=== PATIENT | male | born 1985 | race Caucasian/White ===

== ENCOUNTER → 2016-09-14 | Outpatient (CLI) | payer BC ==
[~2016-09-14] MED LIST: HYDR-3816 PO; SULF-222 PO
--- NOTE | 2016-09-14 15:23 | Diagnostic Imaging Report ---
PROCEDURE: MRI right joint upper extremity without contrast. TECHNIQUE: Multiplanar, multisequence non contrast-enhanced MRI of the right elbow was accomplished. INDICATION: Right elbow pain. History of right elbow surgery approximately 25 years ago. COMPARISONS: None available. FINDINGS: Evaluation of the medial and lateral collateral ligaments of the elbow is limited without intra-articular contrast. Allowing for this, the visualized portions of the ligaments appear intact. The common origins of the medial flexor tendons are intact. There is heterogeneous signal within and surrounding the common origin of the lateral flexor tendons on the epicondyle, indicative of tendinopathy with probable partial thickness tearing of the deep fibers. These findings can be seen with active epicondylitis. The distal biceps and brachialis tendons are normal. No bicipital radial bursitis. Distal triceps is normal. There is a physiologic volume of fluid within the elbow joint space. No osteochondral lesion about the elbow. No full-thickness chondromalacia. There is a normal fat plane surrounding the median and radial nerves at the level of the elbow. No abnormal mass effect on the ulnar nerve in the cubital tunnel. The ulnar nerve is normal in morphology and signal. No fracture. There is slight irregularity of the articular surface of the radial head, which may relate to patient's old trauma or surgery. IMPRESSION: 1. Tendinopathy with partial-thickness deep surface tearing of the common origin of the lateral extensor tendons to indicate active lateral epicondylitis. 2. No additional acute abnormality about the elbow. Dictated by: Dictated on workstation # [id number]
== END ==
LOC: RAD 13:27
PROVIDERS: ATTEND Nurse Practitioner Family
DX: M77.11 Lateral epicondylitis, right elbow (principal)
CPT/HCPCS: 73221

== ENCOUNTER 2017-11-27 21:05 | Outpatient (CLI) | payer BC ==
[~2017-11-27 21:05] MED LIST changes: +HYDR-34 PO; -HYDR-3816 PO
== END 2017-11-28 06:45 | disposition home or self-care (01) ==
LOC: SLEEP 21:05
PROVIDERS: ATTEND Internal Medicine Cardiovascular Disease
DX: G47.33 Obstructive sleep apnea (adult) (pediatric) (principal)
CPT/HCPCS: 95810

== ENCOUNTER → 2017-12-03 | Outpatient (CLI) | payer BC | LOC: CARD 11:56 | PROVIDERS: ATTEND Internal Medicine Cardiovascular Disease | DX: I10 Essential (primary) hypertension (principal); I49.3 Ventricular premature depolarization; R60.9 Edema, unspecified; E66.01 Morbid (severe) obesity due to excess calories; R06.09 Other forms of dyspnea; Z72.0 Tobacco use | CPT/HCPCS: 93306 ==

== ENCOUNTER → 2017-12-04 | Outpatient (CLI) | payer BC ==
[~2017-12-04] VITALS: Ht 188 cm; Wt 152.4 kg
[~2017-12-04] MED LIST changes: +CATHETER FLUSH 10 ML SYR IV PRN
[2017-12-04 09:06] VITALS: BP 123/75
[2017-12-04 09:19] VITALS: BP 176/89
[2017-12-04 09:23] VITALS: BP 141/76
--- NOTE | 2017-12-04 15:44 | STRESS TEST ---
DATE OF SERVICE: 12/04/2017 EXERCISE MYOVIEW STRESS TEST REPORT Baseline heart rate is 53, baseline blood pressure 105/60, baseline EKG sinus rhythm with occasional PVCs. In summary, the patient was injected with 10.2 mCi of technetium-99 Myoview and the resting images were obtained. Then, the patient started exercising with a baseline heart rate, blood pressure and EKG mentioned above, was able to exercise for a total of 10 minutes 45 seconds on standard Chris protocol. With peak exercise level, EKG was showing nondiagnostic changes [address] depression in II, III, aVF. Blood pressure was 219/74. During recovery, heart rate and blood pressure returned to baseline. EKG returned to baseline. The resting and stress images were reviewed and compared in the short axis, horizontal long axis, and vertical long axis views. Review of the images showed diaphragmatic attenuation with typical male pattern. No significant ischemia or infarction. SSS is 0. TID value is 0.91. On the gated images, the left ventricle appeared to be normal size with normal contractility. Calculated ejection fraction 55%. CONCLUSION: 1. Good exercise tolerance, a total of 10 minutes 49 seconds on standard Chris protocol, total of 12.1 METS achieving 89% of maximum expected heart rate. 2. Severe hypertensive response to exercise returned to baseline during recovery. Peak blood pressure was 219/74. 3. Mild nondiagnostic EKG changes with exercise returned to baseline during recovery. 4. Diaphragmatic attenuation with typical male pattern. No significant ischemia or infarction on SPECT images. 5. Normal left ventricular size with normal contractility. Calculated ejection fraction 55%. Job ID: [id number] DocumentID: [id number] Dictated Date: 12/04/2017 15:33:37 Tmd Teacher Date: 12/04/2017 15:43:15 Dictated By: RUDY MEJIA MD
== END ==
LOC: CARD 06:52
PROVIDERS: ATTEND Internal Medicine Cardiovascular Disease
DX: R06.09 Other forms of dyspnea (principal); I10 Essential (primary) hypertension; I49.3 Ventricular premature depolarization; R60.0 Localized edema; E66.01 Morbid (severe) obesity due to excess calories; Z68.41 Body mass index [BMI] 40.0-44.9, adult; Z72.0 Tobacco use
CPT/HCPCS: 78452; 93017

== ENCOUNTER 2018-03-06 10:00 | Observation (INO) | payer BC ==
[~2018-03-06] VITALS: Ht 188 cm; Wt 136.6 kg
[~2018-03-06 10:00] MED LIST changes: -CATHETER FLUSH 10 ML SYR IV PRN
[2018-03-06] MEDS ORDERED: ASPIRIN 81 MG CHEW (CHILDREN'S ASA) PO ONE (10:15)
[2018-03-06] MEDS ORDERED: NITROGLYCERIN 0.4 MG SL TABS BTL 25'S SL PRN ×2 (10:15→15:30)
--- NOTE | 2018-03-06 10:24 | ED Chest Pain ---
General Chief Complaint: Chest Pain Stated Complaint: CP Nursing Triage Note: PT STATES CHEST PAIN AT WORK TODAY, PAIN STARTED THIS A.M. AND PT IS SWEATING WORSE TODAY THAN NORMAL. Nursing Sepsis Screen: No Definite Risk Source: patient History of Present Illness Date Seen by Provider: Mar 06, 2018 Time Seen by Provider: 10:05 Initial Comments PT ARRIVES VIA POV FROM [facility] [employer] PT STATES HE WOKE UP AT 0500 AND HAD CHEST PAIN --MID CHEST HAS BEEN AT WORK SINCE 0600 THIS AM, AND PAIN HAS CONTINUED, AND GOTTEN WORSE-- STATES IT WAS REALLY BAD THIS MORNING, NOT BAD NOW RATES PAIN 8/10 AT WORST, RATES 6/10 NOW HAS BEEN SHORT OF BREATH TODAY STATES HE WAS COMPLETELY DRENCHED WITH SWEAT AT 0830 THIS AM--MUCH MORE THAN NORMAL HAS ONGOING LEG SWELLING FOR THE LAST FEW MONTHS AND IS NO DIFFERENT TODAY. NO CALF PAIN NOW ARMS AND LEGS FEEL TINGLY AND HANDS WERE SHAKING EARLIER PT HAS HISTORY OF HTN, STATES HE TAKES 2 DIFFERENT BLOOD PRESSURE MEDICATIONS PLUS A DIURETIC HAD A STRESS TEST IN NOVEMBER BY DR. MEJIA--HAD MILD NONDIAGNOSTIC EKG CHANGES, AND SIGNIFICANT HYPERTENSIVE RESPONSE WHICH RETURNED TO BASELINE, WITH EF OF 55% Allergies and Home Medications Allergies Coded Allergies: No Known Drug Allergies (Unverified , 04/09/13) Home Medications Hydrocodone Bit/Acetaminophen 1 Each Tablet, 1 EACH PO Q4H PRN for PAIN Prescribed by: JONN GONSALES on 06/08/16 [id number] Patient Home Medication List Home Medication List Reviewed: Yes Review of Systems Constitutional: see HPI, diaphoresis, dizziness Respiratory: See HPI, Cough (HAS CHRONIC MILD NON-PRODUCTIVE COUGH, NO DIFFERENT TODAY), Shortness of Air Cardiovascular: See HPI, Chest Pain, Edema, Lightheadedness; Denies Palpitations, Denies Syncope Gastrointestinal: No Symptoms Reported Genitourinary: No Symptoms Reported Musculoskeletal: back pain (C/O LOWER BACK PAIN --ONGOING PROBLEM) Skin: no symptoms reported Psychiatric/Neurological: See HPI, Anxiety; Denies Headache; Paresthesia, Tingling Endocrine: No Symptoms Reported Hematologic/Lymphatic: No Symptoms Reported Past Ljnkpyb-Hbiktp-Zbzhqi Hx Patient Social History Alcohol Use: Regular Use ([place]/DAY--MOSTLY ON WEEKENDS, NOW 4-5 BEERS/DAY MOSTLY ON WEEKENDS) Recreational Drug Use: Yes (THC, WITH PAST USE OF METH, COCAINE, MUSHROOMS-- DENIES IV USE) Drug of Choice: THC, HX OF METH, COCAINE, MUSHROOMS-NO IV USE Smoking Status: Current Everyday Smoker (1 PPD) Type Used: Cigarettes Recent Foreign Travel: No Contact w/Someone Who Travel: No Recent Infectious Disease Expo: No Recent Hopitalizations: No Immunizations Up To Date Tetanus Booster (TDap): Less than 5yrs Seasonal Allergies Seasonal Allergies: No Past Medical History Surgeries: Yes (RIGHT ELBOW SURGERY CHILD) Orthopedic Respiratory: No Cardiac: Yes (STRESS TEST 12/04/17 DR MEJIA-MILD NONDIAGNOSTIC EKG CHANGES, EF 55%; SEVERE HYPERTENSIVE REACTION) Chronic Edema/Swelling, Hypertension Reproductive Disorders: No Sexually Transmitted Disease: No Genitourinary: No Gastrointestinal: No Musculoskeletal: Yes (RIGHT ELBOW) Fractures HEENT: No (BUT HAS POOR DENTITION) Cancer: No Psychosocial: No Integumentary: No Blood Disorders: No Physical Exam Vital Signs Vital Signs - First Documented 03/06/18 10:11 Temp 98.1 Pulse 80 Resp 20 B/P (MAP) 128/87 (101) Pulse Ox 96 O2 Delivery Room Air Capillary Refill : Less Than 3 Seconds Height, Weight, BMI Height: 6'2.00" Weight: 300lbs.0.0oz.136.770007ao; 43.1 BMI Method:Stated General Appearance: No Apparent Distress, Obese, Other (MALODOROUS) HEENT: PERRL/EOMI, Other (POOR DENTITION) Neck: Full Range of Motion, Normal Inspection, Non Tender, Supple Respiratory: Normal Breath Sounds, No Accessory Muscle Use, No Respiratory Distress Cardiovascular: Regular Rate, Rhythm, No Edema, No JVD, No Murmur, Normal Peripheral Pulses Gastrointestinal: Normal Bowel Sounds, No Organomegaly, No Pulsatile Mass, Non Tender, Soft Extremity: Normal Capillary Refill, Normal Inspection, Normal Range of Motion, Non Tender, No Calf Tenderness, No Pedal Edema Neurologic/Psychiatric: Alert, Oriented x3, No Motor/Sensory Deficits, Normal Mood/Affect, 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 Norm as Tested Skin: Normal Color, Warm/Dry Progress/Results/Core Measures Results/Orders Lab Results Laboratory Tests Test 03/06/18 10:15 03/06/18 10:28 Range/Units White Blood Count 9.5 4.3-11.0 10^3/uL Red Blood Count 5.02 4.35-5.85 10^6/uL Hemoglobin 15.3 13.3-17.7 G/DL Hematocrit 42 40-54 % Mean Corpuscular Volume 84 80-99 FL Mean Corpuscular Hemoglobin 31 25-34 PG Mean Corpuscular Hemoglobin Concent 37 H 32-36 G/DL Red Cell Distribution Width 13.0 10.0-14.5 % Platelet Count 182 130-400 10^3/uL Mean Platelet Volume 10.0 7.4-10.4 FL Neutrophils (%) (Auto) 72 42-75 % Lymphocytes (%) (Auto) 13 12-44 % Monocytes (%) (Auto) 12 0-12 % Eosinophils (%) (Auto) 3 0-10 % Basophils (%) (Auto) 0 0-10 % Neutrophils # (Auto) 6.8 1.8-7.8 X 10^3 Lymphocytes # (Auto) 1.3 1.0-4.0 X 10^3 Monocytes # (Auto) 1.1 H 0.0-1.0 X 10^3 Eosinophils # (Auto) 0.3 0.0-0.3 10^3/uL Basophils # (Auto) 0.0 0.0-0.1 10^3/uL Prothrombin Time 13.5 12.2-14.7 SEC INR Comment 1.0 0.8-1.4 Activated Partial Thromboplast Time 31 24-35 SEC Sodium Level 136 135-145 MMOL/L Potassium Level 4.0 3.6-5.0 MMOL/L Chloride Level 105 98-107 MMOL/L Carbon Dioxide Level 20 L 21-32 MMOL/L Anion Gap 11 5-14 MMOL/L Blood Urea Nitrogen 11 7-18 MG/DL Creatinine 0.74 0.60-1.30 MG/DL Estimat Glomerular Filtration Rate > 60 BUN/Creatinine Ratio 15 Glucose Level 90 70-105 MG/DL Calcium Level 9.3 8.5-10.1 MG/DL Magnesium Level 2.2 1.8-2.4 MG/DL Total Bilirubin 0.8 0.1-1.0 MG/DL Aspartate Amino Transf (AST/SGOT) 24 5-34 U/L Alanine Aminotransferase (ALT/SGPT) 36 0-55 U/L Alkaline Phosphatase 64 40-136 U/L Myoglobin 41.5 10.0-92.0 NG/ML Troponin I < 0.30 <0.30 NG/ML B-Type Natriuretic Peptide < 10.0 <100.0 PG/ML Total Protein 7.2 6.4-8.2 GM/DL Albumin 4.2 3.2-4.5 GM/DL Amylase Level 34 25-125 U/L Lipase 16 8-78 U/L Serum Alcohol < 10 <10 MG/DL Urine Opiates Screen NEGATIVE NEGATIVE Urine Oxycodone Screen NEGATIVE NEGATIVE Urine Methadone Screen NEGATIVE NEGATIVE Urine Propoxyphene Screen NEGATIVE NEGATIVE Urine Barbiturates Screen NEGATIVE NEGATIVE Ur Tricyclic Antidepressants Screen NEGATIVE NEGATIVE Urine Phencyclidine Screen NEGATIVE NEGATIVE Urine Amphetamines Screen NEGATIVE NEGATIVE Urine Methamphetamines Screen NEGATIVE NEGATIVE Urine Benzodiazepines Screen NEGATIVE NEGATIVE Urine Cocaine Screen NEGATIVE NEGATIVE Urine Cannabinoids Screen POSITIVE H NEGATIVE My Orders Orders - VIKI MCNEIL DO Cbc With Automated Diff (03/06/18 10:05) Magnesium (03/06/18 10:05) Chest 1 View, Ap/Pa Only (03/06/18 10:05) Ekg Tracing (03/06/18 10:05) Cardiac Profile 1 (03/06/18 10:05) Comprehensive Metabolic Panel (03/06/18 10:05) Myoglobin Serum (03/06/18 10:05) Protime With Inr (03/06/18 10:05) Partial Thromboplastin Time (03/06/18 10:05) O2 (03/06/18 10:05) Monitor-Rhythm Ecg Trace Only (03/06/18 10:05) Lipid Panel (03/07/18 06:00) Aspirin Chewable Tablet (Baby Aspirin Ch (03/06/18 10:15) Nitroglycerin 0.4 Mg Btl 25's (Nitrostat (03/06/18 10:15) Saline Lock/Iv-Start (03/06/18 10:05) Lipase (03/06/18 10:05) Amylase (03/06/18 10:05) BNP (03/06/18 10:05) Alcohol (03/06/18 10:22) Drug Screen Stat (Urine) (03/06/18 10:22) Ct Angio Chest W (03/06/18 11:51) Ketorolac Injection (Toradol Injection) (03/06/18 12:00) Iohexol Injection (Omnipaque 350 Mg/Ml 1 (03/06/18 12:15) Sodium Chloride Flush (Catheter Flush Sy (03/06/18 12:15) Ns (Ivpb) (Sodium Chloride 0.9%) (03/06/18 12:15) Pharmacy Communication (Pharmacy Communi (03/06/18 12:01) Methylprednisolone Sod Succ (Solu-Medrol (03/06/18 13:30) Ceftriaxone Injection (Rocephin Injectio (03/06/18 13:30) Morphine Injection (Morphine Injection (03/06/18 14:06) Morphine Injection (Morphine Injection (03/06/18 14:07) Medications Given in ED Current Medications Medications Dose Ordered Sig/Errol Route Start Time Stop Time Status Last Admin Dose Admin Aspirin 324 mg ONCE ONCE PO 03/06/18 10:15 03/06/18 10:16 DC 03/06/18 10:22 324 MG Iohexol 150 ml ONCE ONCE IV 03/06/18 12:15 03/06/18 12:16 DC 03/06/18 12:35 125 ML Ketorolac Tromethamine 30 mg ONCE ONCE IVP 03/06/18 12:00 03/06/18 12:01 DC 03/06/18 12:06 30 MG Methylprednisolone Sodium Succinate 125 mg ONCE ONCE IVP 03/06/18 13:30 03/06/18 13:31 DC 03/06/18 14:13 125 MG Nitroglycerin 0.4 mg UD PRN SL 03/06/18 10:15 03/06/18 10:22 0.4 MG Sodium Chloride 10 ml NEEDED PRN IV 03/06/18 12:15 03/06/18 12:35 10 ML Sodium Chloride 250 ml ONCE ONCE IV 03/06/18 12:15 03/06/18 12:16 DC 03/06/18 12:35 80 ML Vital Signs/I&O 03/06/18 03/06/18 03/06/18 10:11 10:22 12:06 Temp 98.1 98.1 98.1 Pulse 80 Resp 20 B/P (MAP) 128/87 (101) Pulse Ox 96 O2 Delivery Room Air Blood Pressure Mean: 101 Progress Progress Note : Progress Note PAIN DOWN TO 4/10 WITH NTG X 1, SYSTOLIC BP DOWN TO 109 GIVEN TORADOL WITHOUT SIGNIFICANT RELIEF, PER PT, BUT HAS BEEN SLEEPING GIVEN MORPHINE WITH MUCH IMPROVEMENT NO DETERIORATION IN PT'S CONDITION DURING ER STAY NO COUGH OR DYSPNEA NOTED DURING ENTIRE ER STAY Initial ECG Impression Date: Mar 06, 2018 Initial ECG Impression Time: 10:06 Initial ECG Rate: 81 Initial ECG Rhythm: Normal Sinus Diagnostic Imaging Comments CXR--NO ACUTE PROCESS, PER RADIOLOGIST REPORT CT CHEST ANGIOGRAM--SUBOPTIMAL TIMING, BUT NO CENTRAL PULMONARY EMBOLI, CENTRAL BRONCHIAL WALL THICKENING--MAY BE DUE TO INFECTIOUS OR INFLAMMATORY PROCESS, SMALL RIGHT PLEURAL EFFUSION WITH LIKELY ATELECTASIS--CANNOT EXCLUDE UNDERLYING INFILTRATE--PER RADIOLOGIST REPORT @ 1323 Reviewed: Reviewed by Me Departure Communication (Admissions) 1324--SPOKE WITH DR. DHALIWAL, WILL CALL BACK 1328--SPOKE WITH DR. DHALIWAL, ACCEPTS PT FOR ADMIT. WILL CONSULT CARDIOLOGY 1329/1342--PAGING DR. RAINEY 1350--SPOKE WITH DR. RAINEY AND INFORMED OF CONSULT Impression Primary Impression: Chest pain Additional Impressions: HX OF HTN Smoker POSSIBLE BRONCHITIS Disposition: ADMITTED INPATIENT Condition: Improved Admissions Decision to Admit Reason: Admit from ER (General) Decision to Admit/Date: Mar 06, 2018 Time/Decision to Admit Time: 13:30 Departure-Patient Inst. Referrals: NO,LOCAL PHYSICIAN (PCP/Family) Primary Care Physician VIKI MCNEIL DO Mar 06, 2018 10:24
[2018-03-06 10:56] LABS: AMPHETAMINE SCREEN, URINE NEGATIVE (NEGATIVE); BARBITURATE SCREEN URINE NEGATIVE (NEGATIVE); BENZODIAZEPINES SCREEN URINE NEGATIVE (NEGATIVE); CANNABINOID SCREEN, URINE POSITIVE (NEGATIVE); COCAINE SCREEN URINE NEGATIVE (NEGATIVE); METHADONE STAT NEGATIVE (NEGATIVE); METHAMPHETAMINE SCREEN URINE S NEGATIVE (NEGATIVE); OPIATE SCREEN URINE NEGATIVE (NEGATIVE); OXYCODONE STAT NEGATIVE (NEGATIVE); PROPOXYPHENE STAT NEGATIVE (NEGATIVE); TRICYCLIC ANTIDEPRESSANTS SCRE NEGATIVE (NEGATIVE)
--- NOTE | 2018-03-06 10:59 | Diagnostic Imaging Report ---
INDICATION: Chest pain. TECHNIQUE: Single frontal view of the chest. COMPARISON: None. FINDINGS: Lung volumes appear normal. No focal consolidation is seen. There is no pleural effusion or pneumothorax. The cardiac silhouette is within normal limits of size. No acute osseous abnormality is seen. IMPRESSION: No acute pulmonary abnormality seen. Dictated by: Dictated on workstation # [id number]
[2018-03-06 11:03] LABS: BASOPHILS % (AUTO) 0 % (0-10); EOSINOPHILS # (AUTO) 0.3 10^3/uL (0.0-0.3); EOSINOPHILS % (AUTO) 3 % (0-10); HEMATOCRIT 42 % (40-54); HEMOGLOBIN 15.3 G/DL (13.3-17.7); LYMPHOCYTES # (AUTO) 1.3 X 10^3 (1.0-4.0); LYMPHOCYTES % (AUTO) 13 % (12-44); MEAN CORPUSCULAR HEMOGLOBIN 31 PG (25-34); MEAN CORPUSCULAR HGB CONC 37 G/DL (32-36); MEAN CORPUSCULAR VOLUME 84 FL (80-99); MONOCYTES # (AUTO) 1.1 X 10^3 (0.0-1.0); MONOCYTES % (AUTO) 12 % (0-12); NEUTROPHILS # (AUTO) 6.8 X 10^3 (1.8-7.8); NEUTROPHILS % (AUTO) 72 % (42-75); PLATELET COUNT 182 10^3/uL (130-400); RED BLOOD COUNT 5.02 10^6/uL (4.35-5.85); WHITE BLOOD COUNT 9.5 10^3/uL (4.3-11.0)
[2018-03-06 11:29] LABS: PROTHROMBIN TIME PATIENT 13.5 SEC (12.2-14.7)
[2018-03-06 11:50] LABS: ALANINE AMINOTRANSFERASE 36 U/L (0-55); ALBUMIN 4.2 GM/DL (3.2-4.5); ALKALINE PHOSPHATASE 64 U/L (40-136); AMYLASE 34 U/L (25-125); BILIRUBIN,TOTAL 0.8 MG/DL (0.1-1.0); BUN/CREATININE RATIO 15; CALCIUM 9.3 MG/DL (8.5-10.1); CARBON DIOXIDE 20 MMOL/L (21-32); CHLORIDE 105 MMOL/L (98-107); CREATININE SERUM 0.74 MG/DL (0.60-1.30); GFR ESTIMATED > 60; GLUCOSE 90 MG/DL (70-105); LIPASE 16 U/L (8-78); MAGNESIUM 2.2 MG/DL (1.8-2.4); SODIUM 136 MMOL/L (135-145); TOTAL PROTEIN 7.2 GM/DL (6.4-8.2)
[2018-03-06] MEDS ORDERED: KETOROLAC 30 MG/ML VIAL IVP ONE (12:00)
[2018-03-06 12:02] LABS: MYOGLOBIN SERUM 41.5 NG/ML (10.0-92.0)
[2018-03-06] MEDS ORDERED: CATHETER FLUSH 10 ML SYR IV PRN (12:15)
[2018-03-06] MEDS ORDERED: NS 250 ML (IVPB) BAG IV ONE (12:15)
[2018-03-06] MEDS ORDERED: IOHEXOL 350 MG/ML 150 ML (OMNIPAQUE 350) VIAL IV ONE (12:15)
--- NOTE | 2018-03-06 13:16 | Diagnostic Imaging Report ---
PROCEDURE: CT angiography of the chest with contrast. TECHNIQUE: Multiple contiguous axial images were obtained through the chest after uneventful bolus administration of intravenous contrast. Reconstructed CTA MIP acquisitions were also performed. INDICATION: Chest pain, leg and arm pain. COMPARISON: Chest x-ray from the same day. FINDINGS: The bolus timing is suboptimal and the pulmonary arteries are diagnostic to the proximal lobar level. No central pulmonary emboli are seen. The aorta is normal in size with no evidence of dissection or aneurysm. The heart is normal in size. There is no pericardial effusion. No mediastinal adenopathy is seen. There is atelectasis/scarring in the lung bases and dependent lung. A small right pleural effusion is seen. There is bronchial wall thickening centrally. No central endobronchial lesions are seen. There is no pneumothorax. Imaged portions of the upper abdomen demonstrate no acute abnormality. No acute osseous abnormality is seen. IMPRESSION: 1. Suboptimal bolus timing, however no central pulmonary emboli are seen. No aortic dissection or aneurysm identified. 2. Central bronchial wall thickening, may be due to an infectious or inflammatory bronchitis. 3. Small right pleural effusion with few airspace opacities in right lung, likely atelectasis, although underlying infiltrate is difficult to exclude. Dictated by: Dictated on workstation # [id number]
[2018-03-06] MEDS ORDERED: cefTRIAXone INJECTION 1,000 MG in NS (IVPB) 50 ML IV ONE (13:30)
[2018-03-06] MEDS ORDERED: methylPREDNISolone 125 MG (Solu-MEDROL) VIAL IVP ONE (13:30)
[2018-03-06] MEDS ORDERED: morphine INJ 10 MG/ML 1ML (SYR OR VIAL) IVP STA (14:06)
[2018-03-06] MEDS ORDERED: morphine INJ 10 MG/ML 1ML (SYR OR VIAL) ONE (14:07)
[2018-03-06] MEDS ORDERED: METO-387 PO (14:22)
[2018-03-06 15:30] VITALS: BP_SYST 108; BP_SYST 119; BP_DIAS 72; BP_DIAS 76
[2018-03-06] MEDS ORDERED: morphine INJ 10 MG/ML 1ML (SYR OR VIAL) IVP PRN (15:30)
[2018-03-06 15:45] VITALS: BP 110/63
[2018-03-06] MEDS ORDERED: MULT-35 PO (15:47)
[2018-03-06] MEDS ORDERED: AMLO5TAB2 PO (15:47)
[2018-03-06] MEDS ORDERED: LISI10TA2 PO (15:47)
[2018-03-06] MEDS ORDERED: HYDR25TA4 PO (15:47)
--- NOTE | 2018-03-06 15:48 | Consultation-Cardiology ---
HPI-Cardiology Cardiology Consultation: Date of Consultation 03/06/18 Time Seen by Provider: 15:50 Date of Admission 03-06-18 Attending Physician Genesis Oconnell MD Admitting Physician No,Local Physician Consulting Physician Erin Tamayo MD HPI: Chief Complaint: Chest pain Mr. Torres is a 33 year old male who has been admitted to [facility] from the ED with c/o CP. 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 He reports when he woke up this morning he was having mid-sternal chest discomfort which radiated up his chest and into his neck. He reports feeling that his hands were trembling uncontrollably. 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 He states he was drenched with sweat and felt nauseated. He states he went to rest in the air conditioning and continued to feel unwell. He reports feeling lightheaded and as though he might pass out. He states after cooling off for a few minutes he went back outside and then felt like he suddenly quit sweating. He reports feeling nauseous. He is currently reporting some continued chest discomfort, but feels it is better. He reports chronic bilat LE edema which is least in the morning and worse at the end of the day. He states he wears knee high compression stockings. Review of Systems-Cardiology Review of Systems Constitutional: As described under HPI; No chills, No fever Eyes: No blurred vision, No vision change Ears/Nose/Throat: No epistaxis, No recent hearing loss Respiratory: As described under HPI Cardiovascular: As described under HPI Gastrointestinal: No constipation, No diarrhea; nausea; No vomiting Genitourinary: No dysuria, No hematuria Musculoskeletal: back pain Skin: No rash, No ulcerations Psychiatric/Neurological: No seizure, No focal weakness, No syncope Hematologic: No bleeding abnormalities [id number] Hx Patient Social History Alcohol Use: Regular Use ([place]/DAY--MOSTLY ON WEEKENDS, NOW 4-5 BEERS/DAY MOSTLY ON WEEKENDS) Recreational Drug Use: Yes (THC, WITH PAST USE OF METH, COCAINE, MUSHROOMS-- DENIES IV USE) Drug of Choice: THC, HX OF METH, COCAINE, MUSHROOMS-NO IV USE Smoking Status: Current Everyday Smoker (1 PPD) Type Used: Cigarettes Recent Foreign Travel: No Recent Infectious Disease Expo: No Immunizations Up To Date Tetanus Booster (TDap): Less than 5yrs Past Medical History PMH As described under Assessment. Allergies and Home Medications Allergies Coded Allergies: No Known Drug Allergies (Unverified , 04/09/13) Home Medications Hydrochlorothiazide 25 Mg Tablet, 25 MG PO DAILY, (Reported) Lisinopril 10 Mg Tablet, 10 MG PO 1830, (Reported) Metoprolol Succinate 25 Mg Tab.er.24h, 25 MG PO 1830, (Reported) Multivitamin 1 Each Tablet, 1 TAB PO DAILY, (Reported) Patient Home Medication List Home Medication List Reviewed: Yes Physical Exam-Cardiology Physical Exam Vital Signs/I&O 03/06/18 03/07/18 03/07/18 03/07/18 20:00 00:23 01:00 04:22 Temp 97.5 97.6 98.0 Pulse 75 70 85 65 Resp 18 B/P (MAP) 117/58 (77) 116/64 (81) 112/70 (84) Pulse Ox 96 97 97 O2 Delivery Room Air Room Air Room Air 03/07/18 07:00 Pulse 65 03/07/18 00:00 Intake Total 2200 ml Output Total 775 ml Balance 1425 ml Capillary Refill : Less Than 3 Seconds Constitutional: AAO x 3, well-developed, well-nourished HEENT: PERRL, hearing is well preserved; No oral hygience is good Neck: No carotid bruit; carotid pulses are 2 + bilaterally Respiratory: No accessory muscle use, No respiratory distress; lungs clear to auscultation, wheezing (expiratory, scattered) Cardiovascular: regular rate-rhythm; No JVD; S1 and S2 Gastrointestinal: No tender; soft, round, audible bowel sounds Rectal: deferred Extremities: no lower extremity edema bilateral Neurologic/Psychiatric: grossly intact, power is 5/5 both on sides Skin: No rash, No ulcerations Data Review Labs Laboratory Tests 03/06/18 10:15: White Blood Count 9.5, Red Blood Count 5.02, Hemoglobin 15.3, Hematocrit 42, Mean Corpuscular Volume 84, Mean Corpuscular Hemoglobin 31, Mean Corpuscular Hemoglobin Concent 37H, Red Cell Distribution Width 13.0, Platelet Count 182, Mean Platelet Volume 10.0, Neutrophils (%) (Auto) 72, Lymphocytes (%) (Auto) 13 , Monocytes (%) (Auto) 12, Eosinophils (%) (Auto) 3, Basophils (%) (Auto) 0, Neutrophils # (Auto) 6.8, Lymphocytes # (Auto) 1.3, Monocytes # (Auto) 1.1H, Eosinophils # (Auto) 0.3, Basophils # (Auto) 0.0, Prothrombin Time 13.5, INR Comment 1.0, Activated Partial Thromboplast Time 31, Sodium Level 136, Potassium Level 4.0, Chloride Level 105, Carbon Dioxide Level 20L, Anion Gap 11 , Blood Urea Nitrogen 11, Creatinine 0.74, Estimat Glomerular Filtration Rate > 60, BUN/Creatinine Ratio 15, Glucose Level 90, Calcium Level 9.3, Magnesium Level 2.2, Total Bilirubin 0.8, Aspartate Amino Transf (AST/SGOT) 24, Alanine Aminotransferase (ALT/SGPT) 36, Alkaline Phosphatase 64, Myoglobin 41.5, Troponin I < 0.30, B-Type Natriuretic Peptide < 10.0, Total Protein 7.2, Albumin 4.2, Amylase Level 34, Lipase 16, Serum Alcohol < 10 03/06/18 10:28: Urine Opiates Screen NEGATIVE, Urine Oxycodone Screen NEGATIVE, Urine Methadone Screen NEGATIVE, Urine Propoxyphene Screen NEGATIVE, Urine Barbiturates Screen NEGATIVE, Ur Tricyclic Antidepressants Screen NEGATIVE, Urine Phencyclidine Screen NEGATIVE, Urine Amphetamines Screen NEGATIVE, Urine Methamphetamines Screen NEGATIVE, Urine Benzodiazepines Screen NEGATIVE, Urine Cocaine Screen NEGATIVE, Urine Cannabinoids Screen POSITIVEH 03/06/18 16:10: Myoglobin 60.3, Troponin I < 0.30 03/07/18 06:05: White Blood Count 11.5H, Red Blood Count 4.95, Hemoglobin 14.8, Hematocrit 41, Mean Corpuscular Volume 83, Mean Corpuscular Hemoglobin 30, Mean Corpuscular Hemoglobin Concent 36, Red Cell Distribution Width 12.8, Platelet Count 182, Mean Platelet Volume 9.8, Neutrophils (%) (Auto) 83H, Lymphocytes (%) (Auto) 9L , Monocytes (%) (Auto) 8, Eosinophils (%) (Auto) 0, Basophils (%) (Auto) 0, Neutrophils # (Auto) 9.6H, Lymphocytes # (Auto) 1.0, Monocytes # (Auto) 0.9, Eosinophils # (Auto) 0.0, Basophils # (Auto) 0.0, Sodium Level 136, Potassium Level 4.3, Chloride Level 104, Carbon Dioxide Level 22, Anion Gap 10, Blood Urea Nitrogen 12, Creatinine 0.68, Estimat Glomerular Filtration Rate > 60, BUN/ Creatinine Ratio 18, Glucose Level 117H, Calcium Level 9.5, Total Bilirubin 0.7 , Aspartate Amino Transf (AST/SGOT) 18, Alanine Aminotransferase (ALT/SGPT) 31, Alkaline Phosphatase 69, Total Protein 7.4, Albumin 4.2, Triglycerides Level 98 , Cholesterol Level 207H, LDL Cholesterol Direct 160H, VLDL Cholesterol 20, HDL Cholesterol 37L Radiology NAME: GHULAM TORRES [facility] REC#: [id number] PT STATUS: ADM Jocelyn : 1985 PHYSICIAN: VIKI MCNEIL DO ADMIT DATE: 03/06/18 Signed Date of Exam: 03/06/18 CT ANGIO CHEST W PROCEDURE: CT angiography of the chest with contrast. TECHNIQUE: Multiple contiguous axial images were obtained through the chest after uneventful bolus administration of intravenous contrast. Reconstructed CTA MIP acquisitions were also performed. INDICATION: Chest pain, leg and arm pain. COMPARISON: Chest x-ray from the same day. FINDINGS: The bolus timing is suboptimal and the pulmonary arteries are diagnostic to the proximal lobar level. No central pulmonary emboli are seen. The aorta is normal in size with no evidence of dissection or aneurysm. The heart is normal in size. There is no pericardial effusion. No mediastinal adenopathy is seen. There is atelectasis/scarring in the lung bases and dependent lung. A small right pleural effusion is seen. There is bronchial wall thickening centrally. No central endobronchial lesions are seen. There is no pneumothorax. Imaged portions of the upper abdomen demonstrate no acute abnormality. No acute osseous abnormality is seen. IMPRESSION: 1. Suboptimal bolus timing, however no central pulmonary emboli are seen. No aortic dissection or aneurysm identified. 2. Central bronchial wall thickening, may be due to an infectious or inflammatory bronchitis. 3. Small right pleural effusion with few airspace opacities in right lung, likely atelectasis, although underlying infiltrate is difficult to exclude. Dictated by: Dictated on workstation # [id number] Dict: 03/06/18 1305 Trans: 03/06/18 1421 Interpreted by: GREGG SALGADO MD Electronically signed by: GREGG SALGADO MD 03/06/18 1429 NAME: GHULAM TORRES [facility] REC#: [id number] PT STATUS: REG ER : 1985 PHYSICIAN: VIKI MCNEIL DO ADMIT DATE: 03/06/18/ER Signed Date of Exam: 03/06/18 CHEST 1 VIEW, AP/PA ONLY INDICATION: Chest pain. TECHNIQUE: Single frontal view of the chest. COMPARISON: None. FINDINGS: Lung volumes appear normal. No focal consolidation is seen. There is no pleural effusion or pneumothorax. The cardiac silhouette is within normal limits of size. No acute osseous abnormality is seen. IMPRESSION: No acute pulmonary abnormality seen. Dictated by: Dictated on workstation # [id number] Dict: 03/06/18 1053 Trans: 03/06/18 1208 Interpreted by: GREGG SALGADO MD Electronically signed by: GREGG SALGADO MD 03/06/18 1208 ECG Impression ECG Initial ECG Rhythm: Normal Sinus A/P-Cardiology Assessment/Admission Diagnosis Chest pain of undetermined etiology - no evidence of ACS Good exercise tolerance, a total of 10 minutes 49 seconds on standard Chris protocol, total of 12.1 METS achieving 89% of maximum expected heart rate. Severe hypertensive response to exercise returned to baseline during recovery. Peak blood pressure was 219/74. Mild nondiagnostic EKG changes with exercise returned to baseline during recovery. Diaphragmatic attenuation with typical male pattern. No significant ischemia or infarction on SPECT images. Normal left ventricular size with normal contractility. Calculated ejection fraction 55%. Per exercise Cardiolite of November [address] Baker Echocardiogram of December 03, [address] Baker showed LVEF 55-60%. Questionable PFO with small shunt. PASP approx 25 mmHg. Trivial MR and TR. Dyspnea on exertion H/O PVC's Hypertension LE edema likely d/t venous insufficiency Tobaccoism - 1 PPD - cessation advised Marijuana use - drug screen (+) on 03-06-18 H/O Alcoholism - reports only drinks Saturday, Saturday and Saturday TAMY - CPAP tx BMI approx 39 DEMARIO DESAI HOURLY MANAGER Mar 06, 2018 15:48
[2018-03-06 16:00] VITALS: BP 128/77
[2018-03-06 17:00] VITALS: BP 122/74
--- NOTE | 2018-03-06 17:31 | Consultation-Cardiology ---
HPI-Cardiology Cardiology Consultation: Date of Consultation 03/06/18 Time Seen by Provider: 17:15 Date of Admission Attending Physician Genesis Oconnell MD Admitting Physician No,Local Physician Consulting Physician HELEN RAINEY MD, MA, FACP, FACC, [facility] Primary lawn specialist: Dr Baker HPI: Chief Complaint: Chest pain Mr. Torres is a 33 year old male who has been admitted to [facility] from the ED with c/o CP. 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 Baker. He reports when he woke up this morning he was having mid-sternal chest discomfort which radiated up his chest and into his neck. He reports feeling that his hands were trembling uncontrollably. 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 He states he was drenched with sweat and felt nauseated. He states he went to rest in the air conditioning and continued to feel unwell. He reports feeling lightheaded and as though he might pass out. He states after cooling off for a few minutes he went back outside and then felt like he suddenly quit sweating. He reports feeling nauseous. He is currently reporting some continued chest discomfort, but feels it is better. He reports chronic bilat LE edema which is least in the morning and worse at the end of the day. He states he wears knee high compression stockings. Review of Systems-Cardiology Review of Systems Constitutional: As described under HPI; No chills, No fever Eyes: No blurred vision, No vision change Ears/Nose/Throat: No epistaxis, No recent hearing loss Respiratory: As described under HPI Cardiovascular: As described under HPI Gastrointestinal: No constipation, No diarrhea; nausea; No vomiting Genitourinary: No dysuria, No hematuria Musculoskeletal: back pain Skin: No rash, No ulcerations Psychiatric/Neurological: No seizure, No focal weakness, No syncope Hematologic: No bleeding abnormalities [id number]-Yqldcy Hx Patient Social History Alcohol Use: Regular Use Recreational Drug Use: Yes (THC, WITH PAST USE OF METH, COCAINE, MUSHROOMS-- DENIES IV USE) Drug of Choice: THC, HX OF METH, COCAINE, MUSHROOMS-NO IV USE Smoking Status: Current Everyday Smoker Type Used: Cigarettes Recent Foreign Travel: No Recent Infectious Disease Expo: No Physical Abuse Screen: No Sexual Abuse: No Immunizations Up To Date Tetanus Booster (TDap): Less than 5yrs Past Medical History PMH As described under Assessment. Allergies and Home Medications Allergies Coded Allergies: No Known Drug Allergies (Unverified , 04/09/13) Home Medications Hydrochlorothiazide 25 Mg Tablet, 25 MG PO DAILY, (Reported) Lisinopril 10 Mg Tablet, 10 MG PO 1830, (Reported) Metoprolol Succinate 25 Mg Tab.er.24h, 25 MG PO 1830, (Reported) Multivitamin 1 Each Tablet, 1 TAB PO DAILY, (Reported) Patient Home Medication List Home Medication List Reviewed: Yes Physical Exam-Cardiology Physical Exam Vital Signs/I&O 03/06/18 03/06/18 03/06/18 03/06/18 10:11 10:22 12:06 15:30 Temp 98.1 98.1 98.1 98.4 Pulse 80 74 Resp 20 18 B/P (MAP) 128/87 (101) 108/76 (87) Pulse Ox 96 96 O2 Delivery Room Air Room Air 03/06/18 03/06/18 03/06/18 03/06/18 15:30 15:42 15:45 15:59 Temp 98.4 98.4 Pulse 72 74 75 Resp 18 18 B/P (MAP) 119/72 (88) 110/63 (79) Pulse Ox 95 96 96 O2 Delivery Room Air Room Air Room Air 03/06/18 03/06/18 16:00 17:00 Temp 98.4 97.6 Pulse 79 85 Resp 18 20 B/P (MAP) 128/77 (94) 122/74 (90) Pulse Ox 94 96 O2 Delivery Room Air Capillary Refill : Less Than 3 SecondsLess Than 3 Seconds Constitutional: AAO x 3, well-developed, well-nourished HEENT: PERRL, hearing is well preserved; No oral hygience is good Neck: No carotid bruit; carotid pulses are 2 + bilaterally Respiratory: No accessory muscle use, No respiratory distress; lungs clear to auscultation, wheezing (expiratory, scattered) Cardiovascular: regular rate-rhythm; No JVD; S1 and S2 Gastrointestinal: No tender; soft, round, audible bowel sounds Rectal: deferred Extremities: no lower extremity edema bilateral Neurologic/Psychiatric: grossly intact, power is 5/5 both on sides Skin: No rash, No ulcerations Data Review Labs Laboratory Tests 03/06/18 10:15: White Blood Count 9.5, Red Blood Count 5.02, Hemoglobin 15.3, Hematocrit 42, Mean Corpuscular Volume 84, Mean Corpuscular Hemoglobin 31, Mean Corpuscular Hemoglobin Concent 37H, Red Cell Distribution Width 13.0, Platelet Count 182, Mean Platelet Volume 10.0, Neutrophils (%) (Auto) 72, Lymphocytes (%) (Auto) 13 , Monocytes (%) (Auto) 12, Eosinophils (%) (Auto) 3, Basophils (%) (Auto) 0, Neutrophils # (Auto) 6.8, Lymphocytes # (Auto) 1.3, Monocytes # (Auto) 1.1H, Eosinophils # (Auto) 0.3, Basophils # (Auto) 0.0, Prothrombin Time 13.5, INR Comment 1.0, Activated Partial Thromboplast Time 31, Sodium Level 136, Potassium Level 4.0, Chloride Level 105, Carbon Dioxide Level 20L, Anion Gap 11 , Blood Urea Nitrogen 11, Creatinine 0.74, Estimat Glomerular Filtration Rate > 60, BUN/Creatinine Ratio 15, Glucose Level 90, Calcium Level 9.3, Magnesium Level 2.2, Total Bilirubin 0.8, Aspartate Amino Transf (AST/SGOT) 24, Alanine Aminotransferase (ALT/SGPT) 36, Alkaline Phosphatase 64, Myoglobin 41.5, Troponin I < 0.30, B-Type Natriuretic Peptide < 10.0, Total Protein 7.2, Albumin 4.2, Amylase Level 34, Lipase 16, Serum Alcohol < 10 03/06/18 10:28: Urine Opiates Screen NEGATIVE, Urine Oxycodone Screen NEGATIVE, Urine Methadone Screen NEGATIVE, Urine Propoxyphene Screen NEGATIVE, Urine Barbiturates Screen NEGATIVE, Ur Tricyclic Antidepressants Screen NEGATIVE, Urine Phencyclidine Screen NEGATIVE, Urine Amphetamines Screen NEGATIVE, Urine Methamphetamines Screen NEGATIVE, Urine Benzodiazepines Screen NEGATIVE, Urine Cocaine Screen NEGATIVE, Urine Cannabinoids Screen POSITIVEH 03/06/18 16:10: A/P-Cardiology Assessment/Admission Diagnosis Chest pain of undetermined etiology - no evidence of ACS MPI of November [address] Baker: Good exercise tolerance, a total of 10 minutes 49 seconds on standard Chris protocol, total of 12.1 METS achieving 89% of maximum expected heart rate. Severe hypertensive response to exercise returned to baseline during recovery. Peak blood pressure was 219/74. Mild nondiagnostic EKG changes with exercise returned to baseline during recovery. Diaphragmatic attenuation with typical male pattern. No significant ischemia or infarction on SPECT images. Normal left ventricular size with normal contractility. Calculated ejection fraction 55%. Echocardiogram of December 03, [address] Baker showed LVEF 55-60%. Questionable PFO with small shunt. PASP approx 25 mmHg. Trivial MR and TR. Dyspnea on exertion H/O PVC's Hypertension LE edema likely d/t venous insufficiency Tobaccoism - 1 PPD - cessation advised Marijuana use - drug screen (+) on 03-06-18 H/O Alcoholism - reports only drinks Saturday, Saturday and Saturday TAMY - CPAP tx BMI approx 39 Discussion and Recomendations * Monitor on tele * Serial ECGs and card enzymes * Add PPI * Further recs to be based on his hosp course * I spoke with him and his fam and answered CV-related questions Clinical Quality Measures DVT/VTE Risk/Contraindication: Risk Factor Score Per Nursin RFS Level Per Nursing on Admit: 2=Moderate HELEN RAINEY MD FACP FAC CCDS Mar 06, 2018 17:31
[2018-03-06 17:39] LABS: MYOGLOBIN SERUM 60.3 NG/ML (10.0-92.0)
[2018-03-06] MEDS ORDERED: morphine INJ 4 MG/ML 1 ML (VIAL/SYRINGE) IVP PRN (17:45)
[2018-03-06] MEDS ORDERED: PANTOPRAZOLE 40 MG (PROTONIX) TAB PO NR (18:29)
[2018-03-06] MEDS ORDERED: lisINopril 10 MG (PRINIVIL) TABLET PO SCH (18:30)
[2018-03-06 19:00] VITALS: BP 119/57
[2018-03-06 20:00] VITALS: BP 117/58
[2018-03-07 00:23] VITALS: BP 116/64
[2018-03-07 04:22] VITALS: BP 112/70
[2018-03-07 06:23] LABS: BASOPHILS % (AUTO) 0 % (0-10); EOSINOPHILS % (AUTO) 0 % (0-10); HEMATOCRIT 41 % (40-54); HEMOGLOBIN 14.8 G/DL (13.3-17.7); LYMPHOCYTES % (AUTO) 9 % (12-44); MEAN CORPUSCULAR HEMOGLOBIN 30 PG (25-34); MEAN CORPUSCULAR HGB CONC 36 G/DL (32-36); MEAN CORPUSCULAR VOLUME 83 FL (80-99); MEAN PLATELET VOLUME 9.8 FL (7.4-10.4); MONOCYTES # (AUTO) 0.9 X 10^3 (0.0-1.0); MONOCYTES % (AUTO) 8 % (0-12); NEUTROPHILS # (AUTO) 9.6 X 10^3 (1.8-7.8); NEUTROPHILS % (AUTO) 83 % (42-75); PLATELET COUNT 182 10^3/uL (130-400); RED BLOOD COUNT 4.95 10^6/uL (4.35-5.85); RED CELL DISTRIBUTION WIDTH 12.8 % (10.0-14.5); WHITE BLOOD COUNT 11.5 10^3/uL (4.3-11.0)
[2018-03-07 06:46] LABS: ALANINE AMINOTRANSFERASE 31 U/L (0-55); ALBUMIN 4.2 GM/DL (3.2-4.5); ALKALINE PHOSPHATASE 69 U/L (40-136); BILIRUBIN,TOTAL 0.7 MG/DL (0.1-1.0); BUN/CREATININE RATIO 18; CALCIUM 9.5 MG/DL (8.5-10.1); CARBON DIOXIDE 22 MMOL/L (21-32); CHLORIDE 104 MMOL/L (98-107); CHOLESTEROL 207 MG/DL (< 200); CREATININE SERUM 0.68 MG/DL (0.60-1.30); GFR ESTIMATED > 60; GLUCOSE 117 MG/DL (70-105); HDL CHOLESTEROL 37 MG/DL (40-60); POTASSIUM 4.3 MMOL/L (3.6-5.0); SODIUM 136 MMOL/L (135-145); TOTAL PROTEIN 7.4 GM/DL (6.4-8.2); TRIGLYCERIDES 98 MG/DL (<150); VLDL CHOLESTEROL 20 MG/DL (5-40)
[2018-03-07] MEDS ORDERED: PANTOPRAZOLE 40 MG (PROTONIX) TAB PO SCH (07:00)
[2018-03-07] MEDS ORDERED: ACETAMINOPHEN 500 MG TAB (TYLENOL) PO PRN (08:45)
[2018-03-07 08:50] VITALS: BP 112/56
[2018-03-07] MEDS ORDERED: ASPIRIN E.C. 81 MG (ECOTRIN) TAB PO SCH (09:00)
--- NOTE | 2018-03-07 09:28 | Short Stay Summary-Hospitalist ---
History of Present Illness HPI/Chief Complaint Pt is a 33yoCM with a PMH of TAMY and tobacco abuse who presented to the ER due to chest heaviness. 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 He started to notice his hands shaking as well and thought he may be wheezing. He went to the medical trailer they have on the job site and they advised him to seek evaluation in the ER. He states his symptoms are essentially resolved at this time but occasionally still has 2/10 pain. His only other complaint is a headache and that he is worried his uvula is too big. Source: patient Date Seen 03/07/18 Time Seen by Provider: 09:23 Attending Physician Kendra Oconnell MD PCP No,Local Physician Referring Physician Date of Admission Mar 06, 2018 at 13:30 Home Medications & Allergies Home Medications Reviewed patient Home Medication Reconciliation performed by pharmacy medication reconciliations fleet technician and/or nursing. Patients Allergies have been reviewed. Allergies Allergies Coded Allergies No Known Drug Allergies (Unverified04/09/13) Past Sutoqjn-Qpnmun-Knbrhm Hx Past Med/Social Hx: Reviewed Nursing Past Med/Soc Hx Patient Social History Marrital Status: Employed/Student: employed Alcohol Use: Regular Use Number of Drinks Today: AA Alcohol Beverage of Choice: Beer Recreational Drug Use: Yes (THC, WITH PAST USE OF METH, COCAINE, MUSHROOMS-- DENIES IV USE) Drug of Choice: THC, HX OF METH, COCAINE, MUSHROOMS-NO IV USE Smoking Status: Current Everyday Smoker Type Used: Cigarettes Physical Abuse Screen: No Sexual Abuse: No Recent Foreign Travel: No Contact w/other who traveled: No Recent Hopitalizations: No Recent Infectious Disease Expo: No Immunizations Up To Date Tetanus Booster (TDap): Less than 5yrs Seasonal Allergies Seasonal Allergies: No Past Medical History Surgeries: Orthopedic Cardiac: Chronic Edema/Swelling, Hypertension Reproductive: No Sexually Transmitted Disease: No Musculoskeletal: Fractures History of Blood Disorders: No Family History Reviewed Nursing Family Hx Heart Disease Review of Systems Constitutional: diaphoresis EENTM: other (dry throat) Respiratory: cough Cardiovascular: chest pain, edema (chronic); No palpitations Gastrointestinal: no symptoms reported Genitourinary: no symptoms reported Musculoskeletal: no symptoms reported Skin: no symptoms reported Psychiatric/Neurological: No Symptoms Reported Physical Exam Physical Exam Vital Signs Vital Signs - First Documented 03/06/18 10:11 Temp 98.1 Pulse 80 Resp 20 B/P (MAP) 128/87 (101) Pulse Ox 96 O2 Delivery Room Air Capillary Refill : Less Than 3 SecondsLess Than 3 Seconds Height, Weight, BMI Height: 6'2.00" Weight: 301lbs. 3.2oz. [id number]; 38.5 BMI Method:Stated General Appearance: No Apparent Distress, WD/WN HEENT: PERRL/EOMI, Moist Mucous Membranes, Other Neck: Non Tender, Supple Respiratory: Lungs Clear, No Respiratory Distress Cardiovascular: Regular Rate, Rhythm, No Murmur Gastrointestinal: Normal Bowel Sounds, Non Tender, Soft Extremity: Normal Capillary Refill, No Calf Tenderness Neurologic/Psychiatric: Alert, Oriented x3, Normal Mood/Affect Skin: Normal Color, Warm/Dry Results Results/Procedures Labs Laboratory Tests 03/06/18 10:15 03/07/18 06:05 Patient resulted labs reviewed. Imaging: Reviewed Imaging Report Short Stay Diagnosis Discharge Diagnosis-Short Stay Admission Diagnosis Chest pain Final Discharge Diagnosis Chest pain Conclusion Plan See problems Diagnosis/Problems Diagnosis/Problems (1) Chest pain Status: Acute Assessment & Plan: Had nuclear stress test done in November Discussed with Dr Tamayo- does not feel source is cardiac Wells Score is 0 Troponin's trended and negative Advised to follow up with Dr Baker Also strongly recommended establishing with PCP and gave list of local physicians Qualifiers: Qualified Codes: R07.9 - Chest pain, unspecified (2) Smoker Status: Acute Assessment & Plan: Recommended smoking cessation (both THC and tobacco) Discussed use of Chantix Reportedly can get it for free from work Again recommended cessation and follow up with PCP Clinical Quality Measures AMI/AHF: ASA po Prior to arrival: No DVT/VTE Risk/Contraindication: Risk Factor Score Per Nursin RFS Level Per Nursing on Admit: 2=Moderate Smoking Cessation Counseling: Counseling-Symptomatic: 3-10 Minutes Discussed Options Including: KENDRA Saenz MD Mar 07, 2018 09:28
--- NOTE | 2018-03-07 10:11 | Progress Note-Cardiology ---
Cardiology SOAP Progress Note Objective: I&O/Vital Signs Weight (Pounds): 301 Weight (Ounces): 3.2 Weight (Calculated Kilograms): 136.859333 Constitutional: AAO x 3, well-developed, well-nourished Respiratory: No accessory muscle use, No respiratory distress; lungs clear to auscultation, wheezing (expiratory, scattered) Cardiovascular: regular rate-rhythm; No JVD; S1 and S2 Gastrointestional: No tender; soft, round, audible bowel sounds Extremities: no lower extremity edema bilateral Neurologic/Psychiatric: grossly intact, power is 5/5 both on sides Skin: No rash, No ulcerations Results/Procedures: Labs A/P: Assessment: Chest pain of undetermined etiology - no evidence of ACS MPI of November [address] Baker: Good exercise tolerance, a total of 10 minutes 49 seconds on standard Chris protocol, total of 12.1 METS achieving 89% of maximum expected heart rate. Severe hypertensive response to exercise returned to baseline during recovery. Peak blood pressure was 219/74. Mild nondiagnostic EKG changes with exercise returned to baseline during recovery. Diaphragmatic attenuation with typical male pattern. No significant ischemia or infarction on SPECT images. Normal left ventricular size with normal contractility. Calculated ejection fraction 55%. Echocardiogram of December 03, [address] Baker showed LVEF 55-60%. Questionable PFO with small shunt. PASP approx 25 mmHg. Trivial MR and TR. Dyspnea on exertion H/O PVC's Hypertension LE edema likely d/t venous insufficiency Tobaccoism - 1 PPD - cessation advised Marijuana use - drug screen (+) on 03-06-18 H/O Alcoholism - reports only drinks Saturday, Saturday and Saturday TAMY - CPAP tx BMI approx 39 Plan: * No evidence of ACS * Continue current cardiac medication regimen * Immediate and complete smoking cessation advised * Immediate and complete marijuana cessation advised * Advised abstinence from heavy alcohol use * We have spoke with him and his fam and answered CV-related questions * OK to discharge home from cardiac stand point with out pt f/u to see Dr. Baker his primary contracting officer Clinical Quality Measures AMI/AHF: ASA po Prior to arrival: DEMARIO Holt Mar 07, 2018 10:11
--- NOTE | 2018-03-07 10:37 | Progress Note-Cardiology ---
Cardiology SOAP Progress Note Subjective: Feels chest discomfort has improved. Feels SOB has improved. Reports occ non- prod cough. Wants to go home. Objective: I&O/Vital Signs 03/07/18 03/07/18 03/07/18 07:00 08:50 11:42 Temp 96.9 Pulse 65 76 76 Resp 20 20 B/P (MAP) 112/56 (74) 112/56 Pulse Ox 96 96 O2 Delivery Room Air Room Air 03/07/18 00:00 Intake Total 2200 ml Output Total 775 ml Balance 1425 ml Weight (Pounds): 301 Weight (Ounces): 3.2 Weight (Calculated Kilograms): 136.001571 Constitutional: AAO x 3, well-developed, well-nourished Respiratory: No accessory muscle use, No respiratory distress; lungs clear to auscultation, wheezing (expiratory, scattered) Cardiovascular: regular rate-rhythm; No JVD; S1 and S2 Gastrointestional: No tender; soft, round, audible bowel sounds Extremities: no lower extremity edema bilateral Neurologic/Psychiatric: grossly intact, power is 5/5 both on sides Skin: No rash, No ulcerations Results/Procedures: Labs Laboratory Tests 03/07/18 06:05: White Blood Count 11.5H, Red Blood Count 4.95, Hemoglobin 14.8, Hematocrit 41, Mean Corpuscular Volume 83, Mean Corpuscular Hemoglobin 30, Mean Corpuscular Hemoglobin Concent 36, Red Cell Distribution Width 12.8, Platelet Count 182, Mean Platelet Volume 9.8, Neutrophils (%) (Auto) 83H, Lymphocytes (%) (Auto) 9L , Monocytes (%) (Auto) 8, Eosinophils (%) (Auto) 0, Basophils (%) (Auto) 0, Neutrophils # (Auto) 9.6H, Lymphocytes # (Auto) 1.0, Monocytes # (Auto) 0.9, Eosinophils # (Auto) 0.0, Basophils # (Auto) 0.0, Sodium Level 136, Potassium Level 4.3, Chloride Level 104, Carbon Dioxide Level 22, Anion Gap 10, Blood Urea Nitrogen 12, Creatinine 0.68, Estimat Glomerular Filtration Rate > 60, BUN/ Creatinine Ratio 18, Glucose Level 117H, Calcium Level 9.5, Total Bilirubin 0.7 , Aspartate Amino Transf (AST/SGOT) 18, Alanine Aminotransferase (ALT/SGPT) 31, Alkaline Phosphatase 69, Total Protein 7.4, Albumin 4.2, Triglycerides Level 98 , Cholesterol Level 207H, LDL Cholesterol Direct 160H, VLDL Cholesterol 20, HDL Cholesterol 37L A/P: Assessment: Chest pain of undetermined etiology - no evidence of ACS - improved with addition of PPI MPI of November [address] Baker: Good exercise tolerance, a total of 10 minutes 49 seconds on standard Chris protocol, total of 12.1 METS achieving 89% of maximum expected heart rate. Severe hypertensive response to exercise returned to baseline during recovery. Peak blood pressure was 219/74. Mild nondiagnostic EKG changes with exercise returned to baseline during recovery. Diaphragmatic attenuation with typical male pattern. No significant ischemia or infarction on SPECT images. Normal left ventricular size with normal contractility. Calculated ejection fraction 55%. Echocardiogram of December 03, [address] Baker showed LVEF 55-60%. Questionable PFO with small shunt. PASP approx 25 mmHg. Trivial MR and TR. Dyspnea on exertion H/O PVC's Hypertension LE edema likely d/t venous insufficiency Tobaccoism - 1 PPD - cessation advised Marijuana use - drug screen (+) on 03-06-18 H/O Alcoholism - reports only drinks Saturday, Saturday and Saturday TAMY - CPAP tx BMI approx 39 Plan: * No evidence of ACS * Continue current cardiac medication regimen * Advise HCTZ be held for now - LE edema likely d/t venous insufficiency d/t weight * Immediate and complete smoking cessation advised * Immediate and complete marijuana cessation advised * Advised abstinence from heavy alcohol use * We have spoke with him and his fam and answered CV-related questions * OK to discharge home from cardiac stand point with out pt f/u to see Dr. 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 No palp or syncope. Has chronic exertional shortness of breath, moderate, unchanged Lungs: good bilat air entry Cor: reg Ext: no c/c/e A&R * As documented in our note above that I updated in italics and as noted below * I discussed his case with Dr Oconnell * I had a detailed discussion with the patient and his * We have advised immediate and complete smoking cessation and efforts at wgt loss and other risk factor mod * We have advised outpt f/u with Dr Baker CLIFFORD * We have advised return to ER in case of recurrent symptoms or new symptoms Clinical Quality Measures AMI/AHF: ASA po Prior to arrival: DEMARIO Holt IV THERAPY NURSE Mar 07, 2018 10:37 HELEN RAINEY MD FACP FAC CCDS Mar 07, 2018 18:39
[2018-03-07] MEDS ORDERED: PANT40TA3 PO (10:38)
[2018-03-07] MEDS ORDERED: ASPI-983 PO (10:38)
--- NOTE | 2018-03-07 11:04 | Discharge Inst-Simple/Standard ---
Discharge Inst-Standard Patient Instructions/Follow Up Plan of Care/Instructions/FU: Please continue to take your medications as written. Please schedule an apointment with a a primary care doctor. Activity as Tolerated: Yes Discharge Diet: Low Sodium Diet Return to The Hospital For: Chest pain, SOB, if you feel you are getting. KENDRA DHALIWAL MD Mar 07, 2018 11:04
[2018-03-07 11:42] VITALS: BP 112/56
== END 2018-03-07 11:04 | disposition home or self-care (01) ==
LOC: EDUNIT# 10:00 → ER 10:01 → 4TH 13:30 → UNDOADMOB 13:30 → 4TH 15:42 → UNDODISOB 03-07 11:44
PROVIDERS: ADMIT Family Medicine; ATTEND Family Medicine
DX: R07.9 Chest pain, unspecified (principal); R06.09 Other forms of dyspnea; I10 Essential (primary) hypertension; R60.0 Localized edema; G47.33 Obstructive sleep apnea (adult) (pediatric); F17.210 Nicotine dependence, cigarettes, uncomplicated; F12.90 Cannabis use, unspecified, uncomplicated
CPT/HCPCS: 36415; 71045; 71275; 80053; 80061; 80306; 80320; 82150; 83690; 83735; 83874; 83880; 84484; 85025; 85610; 85730; 93005; 93041; 96374; 96375; G0378

== ENCOUNTER 2019-11-12 10:55 | Emergency (ER) | payer BC ==
[~2019-11-12] VITALS: Ht 187 cm; Wt 173.0 kg
[~2019-11-12 10:55] MED LIST changes: +AMLO5TAB9 PO; +ASPI-983 PO; +HYDR25TA4 PO; +LISI10TA2 PO; +MTP25TSR PO; +MULT-35 PO; +PANT40TA3 PO
[2019-11-12] MEDS ORDERED: KETOROLAC 30 MG/ML VIAL IVP ONE (11:15)
--- NOTE | 2019-11-12 11:21 | ED Chest Pain ---
General Chief Complaint: Chest Pain Stated Complaint: CHEST PAIN Nursing Triage Note: PT AMBULATED TO ROOM 5 PT CO OF CHEST PAIN FOR APPROX 2 WEEKS. PT STATES HAS NOT TAKEN MEDS FOR 6 MONTHS. PT HAS STATES HAS HOLE IN HEART AND IS UNDERCARE OF DR MEJIA Nursing Sepsis Screen: No Definite Risk Source: patient Exam Limitations: no limitations History of Present Illness Date Seen by Provider: Nov 12, 2019 Time Seen by Provider: 11:10 Initial Comments To ER with intermittent chest pain described as a burning sensation left upper anterior chest that radiates as a burning sensation down the left arm. This pain has been intermittent times one month. He has occasional shortness of breath with extreme exertion but regular activities of daily living he is not short of breath. No fevers or chills. Follow-up with Dr. Welch. Has hypertension and is supposed to take antihypertensives but has not done so in about 6 months. 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 NTG SL PRODUCTION MACHINE OPERATOR: No Associated Symptoms: denies symptoms Allergies and Home Medications Allergies Coded Allergies: No Known Drug Allergies (Unverified , 04/09/13) Home Medications Aspirin 81 Mg Tablet.dr, 81 MG PO DAILY Prescribed by: DEMARIO DESAI on 03/07/18 1038 Lisinopril 10 Mg Tablet, 10 MG PO 1830, (Reported) Metoprolol Succinate 25 Mg Tab.er.24h, 25 MG PO 1830, (Reported) Multivitamin 1 Each Tablet, 1 TAB PO DAILY, (Reported) Pantoprazole Sodium 40 Mg Tablet.dr, 40 MG PO DAILY@0700 Prescribed by: DEMARIO DESAI on 03/07/18 1038 Patient Home Medication List Home Medication List Reviewed: Yes Review of Systems Review of Systems Constitutional: see HPI; No chills, No fever EENTM: No Symptoms Reported Respiratory: No Symptoms Reported; Denies Cough, Denies Shortness of Air, Denies SOA at Rest Cardiovascular: See HPI, Chest Pain Gastrointestinal: No Symptoms Reported Genitourinary: No Symptoms Reported Musculoskeletal: no symptoms reported Skin: no symptoms reported Psychiatric/Neurological: No Symptoms Reported Endocrine: No Symptoms Reported Past Zgwqmtu-Srrckm-Mbdkol Hx Patient Social History Alcohol Use: Occasionally Uses Alcohol Beverage of Choice: Beer Recreational Drug Use: Yes (POT) Drug of Choice: THC, HX OF METH, COCAINE, MUSHROOMS-NO IV USE Smoking Status: Former Smoker Type Used: Cigarettes Recent Foreign Travel: No Contact w/Someone Who Travel: No Recent Infectious Disease Expo: No Recent Hopitalizations: No Physical Abuse: No Sexual Abuse: No Immunizations Up To Date Tetanus Booster (TDap): Less than 5yrs Seasonal Allergies Seasonal Allergies: No Past Medical History Surgeries: Yes (RIGHT ELBOW SURGERY CHILD) Orthopedic Respiratory: No Chronic Edema/Swelling, Hypertension Neurological: No Reproductive Disorders: No Sexually Transmitted Disease: No Genitourinary: No Gastrointestinal: No Musculoskeletal: Yes (RIGHT ELBOW) Fractures Endocrine: No HEENT: No (BUT HAS POOR DENTITION) Cancer: No Psychosocial: No Integumentary: No Blood Disorders: No Family Medical History Heart Disease Physical Exam Vital Signs Vital Signs - First Documented Capillary Refill : Less Than 3 Seconds Height, Weight, BMI Height: 6'2.00" Weight: 301lbs. 3.2oz. 136.786975ra; 49.00 BMI Method:Stated General Appearance: No Apparent Distress, WD/WN, Obese HEENT: Normal ENT Inspection, Pharynx Normal Neck: Full Range of Motion, Normal Inspection Respiratory: No Accessory Muscle Use, No Respiratory Distress Cardiovascular: Regular Rate, Rhythm, Normal Peripheral Pulses Gastrointestinal: Normal Bowel Sounds, Non Tender, Soft Extremity: Normal Capillary Refill, Normal Inspection (Wh) Neurologic/Psychiatric: Alert, Oriented x3 Skin: Normal Color, Warm/Dry Progress/Results/Core Measures Results/Orders Lab Results Laboratory Tests Test 11/12/19 11:00 11/12/19 12:53 Range/Units White Blood Count 5.6 4.3-11.0 10^3/uL Red Blood Count 4.97 4.35-5.85 10^6/uL Hemoglobin 14.4 13.3-17.7 G/DL Hematocrit 41 40-54 % Mean Corpuscular Volume 83 80-99 FL Mean Corpuscular Hemoglobin 29 25-34 PG Mean Corpuscular Hemoglobin Concent 35 32-36 G/DL Red Cell Distribution Width 13.2 10.0-14.5 % Platelet Count 182 130-400 10^3/uL Mean Platelet Volume 9.9 7.4-10.4 FL Neutrophils (%) (Auto) 62 42-75 % Lymphocytes (%) (Auto) 21 12-44 % Monocytes (%) (Auto) 13 H 0-12 % Eosinophils (%) (Auto) 4 0-10 % Basophils (%) (Auto) 0 0-10 % Neutrophils # (Auto) 3.5 1.8-7.8 X 10^3 Lymphocytes # (Auto) 1.2 1.0-4.0 X 10^3 Monocytes # (Auto) 0.7 0.0-1.0 X 10^3 Eosinophils # (Auto) 0.2 0.0-0.3 10^3/uL Basophils # (Auto) 0.0 0.0-0.1 10^3/uL Prothrombin Time 13.0 12.2-14.7 SEC INR Comment 0.9 0.8-1.4 Activated Partial Thromboplast Time 30 24-35 SEC D-Dimer < 0.27 0.00-0.49 UG/ML Sodium Level 138 135-145 MMOL/L Potassium Level 4.2 3.6-5.0 MMOL/L Chloride Level 107 98-107 MMOL/L Carbon Dioxide Level 22 21-32 MMOL/L Anion Gap 9 5-14 MMOL/L Blood Urea Nitrogen 11 7-18 MG/DL Creatinine 0.75 0.60-1.30 MG/DL Estimat Glomerular Filtration Rate > 60 BUN/Creatinine Ratio 15 Glucose Level 93 70-105 MG/DL Calcium Level 8.7 8.5-10.1 MG/DL Corrected Calcium 8.6 8.5-10.1 MG/DL Magnesium Level 2.1 1.6-2.4 MG/DL Total Bilirubin 0.4 0.1-1.0 MG/DL Aspartate Amino Transf (AST/SGOT) 21 5-34 U/L Alanine Aminotransferase (ALT/SGPT) 30 0-55 U/L Alkaline Phosphatase 64 40-136 U/L Myoglobin 30.8 10.0-92.0 NG/ML Troponin I < 0.028 <0.028 NG/ML B-Type Natriuretic Peptide 27.0 <100.0 PG/ML Total Protein 6.7 6.4-8.2 GM/DL Albumin 4.1 3.2-4.5 GM/DL My Orders Orders - ELVIN OSUNA DRESSMAKER HELPER Cbc With Automated Diff (11/12/19 11:14) Magnesium (11/12/19 11:14) Chest 1 View, Ap/Pa Only (11/12/19 11:14) Ekg Tracing (11/12/19 11:14) Comprehensive Metabolic Panel (11/12/19 11:14) Myoglobin Serum (11/12/19 11:14) Protime With Inr (11/12/19 11:14) Partial Thromboplastin Time (11/12/19 11:14) O2 (11/12/19 11:14) Monitor-Rhythm Ecg Trace Only (11/12/19 11:14) Lipid Panel (11/13/19 06:00) Ed Iv/Invasive Line Start (11/12/19 11:14) BNP (11/12/19 11:14) Fibrin Degradation Products (11/12/19 11:14) Ketorolac Injection (Toradol Injection) (11/12/19 11:15) Troponin I (11/12/19 11:00) Troponin I (11/12/19 12:40) Medications Given in ED Current Medications Medications Dose Ordered Sig/Errol Route Start Time Stop Time Status Last Admin Dose Admin Ketorolac Tromethamine 15 mg ONCE ONCE IVP 11/12/19 11:15 11/12/19 11:16 DC 11/12/19 11:22 15 MG Vital Signs/I&O 11/12/19 11/12/19 11/12/19 10:56 10:56 10:56 Temp 36.6 Pulse 52 Resp 18 B/P (MAP) 124/82 (96) Pulse Ox 99 O2 Delivery Nasal Cannula Nasal Cannula O2 Flow Rate 2.0 2.00 Blood Pressure Mean: 96 Departure Communication (Admissions) 1317-no pain at this time after Toradol. Impression Primary Impression: Chest wall pain Disposition: 01 HOME, SELF-CARE Condition: Stable Departure-Patient Inst. Decision time for Depature: 13:17 Referrals: NO,LOCAL PHYSICIAN (PCP) Primary Care Physician Patient Instructions: Chest Pain Add. Discharge Instructions: 1. Return to ER for any concerns 2. Follow-up with your doctor next week 3. All discharge instructions reviewed with patient and/or family. Voiced understanding. ELVIN OSUNA APRN Nov 12, 2019 11:20
[2019-11-12 11:26] LABS: BASOPHILS % (AUTO) 0 % (0-10); EOSINOPHILS # (AUTO) 0.2 10^3/uL (0.0-0.3); EOSINOPHILS % (AUTO) 4 % (0-10); HEMATOCRIT 41 % (40-54); HEMOGLOBIN 14.4 G/DL (13.3-17.7); LYMPHOCYTES # (AUTO) 1.2 X 10^3 (1.0-4.0); LYMPHOCYTES % (AUTO) 21 % (12-44); MEAN CORPUSCULAR HEMOGLOBIN 29 PG (25-34); MEAN CORPUSCULAR HGB CONC 35 G/DL (32-36); MEAN CORPUSCULAR VOLUME 83 FL (80-99); MEAN PLATELET VOLUME 9.9 FL (7.4-10.4); MONOCYTES # (AUTO) 0.7 X 10^3 (0.0-1.0); MONOCYTES % (AUTO) 13 % (0-12); NEUTROPHILS # (AUTO) 3.5 X 10^3 (1.8-7.8); NEUTROPHILS % (AUTO) 62 % (42-75); PLATELET COUNT 182 10^3/uL (130-400); RED CELL DISTRIBUTION WIDTH 13.2 % (10.0-14.5); WHITE BLOOD COUNT 5.6 10^3/uL (4.3-11.0)
[2019-11-12 11:34] LABS: INR 0.9 (0.8-1.4)
[2019-11-12 11:38] LABS: ALANINE AMINOTRANSFERASE 30 U/L (0-55); ALBUMIN 4.1 GM/DL (3.2-4.5); ALKALINE PHOSPHATASE 64 U/L (40-136); BILIRUBIN,TOTAL 0.4 MG/DL (0.1-1.0); BUN/CREATININE RATIO 15; CALCIUM 8.7 MG/DL (8.5-10.1); CARBON DIOXIDE 22 MMOL/L (21-32); CHLORIDE 107 MMOL/L (98-107); CREATININE SERUM 0.75 MG/DL (0.60-1.30); GFR ESTIMATED > 60; GLUCOSE 93 MG/DL (70-105); MAGNESIUM 2.1 MG/DL (1.6-2.4); POTASSIUM 4.2 MMOL/L (3.6-5.0); SODIUM 138 MMOL/L (135-145); TOTAL PROTEIN 6.7 GM/DL (6.4-8.2)
--- NOTE | 2019-11-12 12:04 | Diagnostic Imaging Report ---
INDICATION: Chest pain on the left side for 4 weeks. Time of exam 11:32 AM Correlation is made with prior chest from 03/06/2018. Heart size stable. Lungs appear to be clear. No infiltrates are seen. No effusion or pneumothorax. IMPRESSION: No acute cardiopulmonary process is detected. Dictated by: Dictated on workstation # [id number]
[2019-11-12 13:53] VITALS: BP 124/88
== END 2019-11-12 13:58 | disposition home or self-care (01) ==
LOC: EDUNIT# 10:55 → ER 10:57
DX: R07.89 Other chest pain (principal); I10 Essential (primary) hypertension; Z87.891 Personal history of nicotine dependence; Z82.49 Family history of ischemic heart disease and other diseases of the circulatory system
CPT/HCPCS: 36415; 71045; 80053; 83735; 83874; 83880; 84484; 85025; 85379; 85610; 85730; 93005; 93041

== ENCOUNTER → 2020-01-28 | Outpatient (CLI) | payer OTHER ==
--- NOTE | 2020-01-28 14:05 | Diagnostic Imaging Report ---
PROCEDURE: CT head without contrast. TECHNIQUE: Multiple contiguous axial images were obtained through the brain without the use of intravenous contrast. Auto Exposure Controls were utilized during the CT exam to meet ALARA standards for radiation dose reduction. INDICATION: Injury with right periorbital pain and swelling. FINDINGS: There is no intracranial hemorrhage, hydrocephalus, edema, mass, or mass effect. There were no findings of an elevation to the intracranial pressures. The basilar cisterns are patent. There is no sulcal effacement. There is no mastoid effusion. The middle ear cavities are unremarkable. The calvarium showed no traumatic deformity. There is right-sided preseptal and supraorbital soft tissue swelling. The underlying bony orbital scott were intact. The anterior and posterior scott of the frontal sinus is intact. The globes showed normal symmetrical volume and morphology. The extraocular muscles are normal. There is no post-septal or retrobulbar hematoma. No radiopaque foreign body. No proptosis. The paranasal sinuses are clear. The nasal bones and bony nasal septum are nonacute. IMPRESSION: 1. Right preseptal and periorbital soft tissue swelling but no post-septal hematoma or orbital fracture. 2. No acute intracerebral abnormality. Dictated by: Dictated on workstation # [id number]
== END ==
LOC: RAD 13:22
PROVIDERS: ATTEND Nurse Practitioner
DX: S09.90XA Unspecified injury of head, initial encounter (principal)
CPT/HCPCS: 70450

== ENCOUNTER 2021-10-19 11:11 | Emergency (ER) | payer OTHER ==
[~2021-10-19] VITALS: Ht 187 cm; Wt 156.0 kg
[~2021-10-19 11:11] MED LIST changes: +AMLO-250 PO; -AMLO5TAB9 PO; +ASPI-1238 PO; -ASPI-983 PO; -LISI10TA2 PO; +LISI10TA25 PO; -PANT40TA3 PO; +PANT40TA52 PO
[2021-10-19] MEDS ORDERED: ASPIRIN 81 MG CHEW (CHILDREN'S ASA) PO ONE (11:15)
--- NOTE | 2021-10-19 11:26 | ED Chest Pain ---
General Chief Complaint: Chest Pain Stated Complaint: CHEST PAIN Nursing Triage Note: ARRIVED VIA AMB WITH COMPLAINTS OF CHEST PAIN AND SOA THAT HE WOKE UP WITH. Source: patient Exam Limitations: no limitations (ELVIN OSUNA APRN) History of Present Illness Date Seen by Provider: Oct 19, 2021 Time Seen by Provider: 11:23 Initial Comments To ER by private vehicle accompanied by his from [facility] where he is employed with reports of chest pain. He was seen by Irasema Rivers from [facility] urgent care today and reported the symptoms to her. He has had left-sided chest pain that radiates down the left arm as a tingling/numbness sensation as well as weakness in the left arm. The symptoms have been present for about 2 weeks intermittent but constant since he awakened this morning at about 6 AM. History of arrhythmias. He was admitted to the hospital in 2018 for chest pain. He states that if he uses the left arm too much he feels some weakness develop in the left arm. Has some pain in the left side of his neck. Currently rates the chest pain 7 out of 10. It is left-sided described as pressure. Supposed to be on Norvasc and Zestril but states he does not actually take them. He smokes weed daily he says. He drank alcohol heavily until about 2 weeks ago when he reduced his alcohol use and has not had much since. He denies any other drug use. Timing/Duration: changing over time Severity/Quality: moderate, pressure Location: central Activities at Onset: none ASA po BILLING CONTROL CLERK: No NTG SL BILLING CONTROL CLERK: No Associated Symptoms: No nausea/vomiting; shortness of breath (ELVIN OSUNA APRN) Allergies and Home Medications Allergies Coded Allergies: No Known Drug Allergies (Unverified , 04/09/13) Patient Home Medication List Home Medication List Reviewed: Yes (ELVIN OSUNA APRN) Pantoprazole Sodium (Protonix) 40 Mg Tablet., 40 MG PO DAILY Prescribed by: ELVIN OSUNA on 10/19/21 1233 Discontinued Medications Aspirin (Aspirin EC) 81 Mg Tablet., 81 MG PO DAILY Discontinued Reason: No Longer Taking Prescribed by: DEMARIO DESAI on 03/07/18 1038 Last Action: Discontinued Lisinopril (Lisinopril) 10 Mg Tablet, 10 MG PO 1830, (Reported) Discontinued Reason: No Longer Taking Entered as Reported by: RAFIA ZAMORA on 03/06/18 1547 Last Action: Discontinued Metoprolol Succinate (Metoprolol Succinate) 25 Mg Tab.er.24h, 25 MG PO 1830, (Reported) Discontinued Reason: No Longer Taking Entered as Reported by: RAFIA ZAMORA on 03/06/18 1422 Last Action: Discontinued Multivitamin (Daily Multiple Vitamin) 1 Each Tablet, 1 TAB PO DAILY, (Reported) Discontinued Reason: No Longer Taking Entered as Reported by: RAFIA ZAMORA on 03/06/18 1547 Last Action: Discontinued Pantoprazole Sodium (Pantoprazole Sodium) 40 Mg Tablet.dr, 40 MG PO DAILY@0700 Discontinued Reason: No Longer Taking Prescribed by: DEMARIO DESAI on 03/07/18 1038 Last Action: Discontinued Review of Systems Review of Systems Constitutional: see HPI EENTM: No Symptoms Reported Respiratory: No Symptoms Reported Cardiovascular: No Symptoms Reported Gastrointestinal: See HPI Genitourinary: No Symptoms Reported Musculoskeletal: no symptoms reported Skin: no symptoms reported Psychiatric/Neurological: No Symptoms Reported Endocrine: No Symptoms Reported Hematologic/Lymphatic: No Symptoms Reported (ELVIN OSUNA APRN) Past Obhgfwm-Fjyujf-Qhnykl Hx Patient Social History Tobacco Use?: No Use of E-Cig and/or Vaping Jorge: Never a User Substance use?: Yes Substance type: Marijuana Alcohol Use?: Yes Alcohol Frequency: Once in a while (ELVIN OSUNA APRN) Immunizations Up To Date Tetanus Booster (TDap): Less than 5yrs Second COVID19 Vaccination Theo: UNKNOWN COVID19 Vaccine Java Sdet: MODERNWhitley (ELVIN OSUNA APRN) Seasonal Allergies Seasonal Allergies: No (ELVIN OSUNA APRN) Past Medical History Surgeries: Yes (RIGHT ELBOW SURGERY CHILD) Orthopedic Respiratory: No Chronic Edema/Swelling, Hypertension Neurological: No Reproductive Disorders: No Sexually Transmitted Disease: No Genitourinary: No Gastrointestinal: No Musculoskeletal: Yes (RIGHT ELBOW) Fractures Endocrine: No HEENT: No (BUT HAS POOR DENTITION) Cancer: No Psychosocial: No Integumentary: No Blood Disorders: No (ELVIN OSUNA APRN) Family Medical History Heart Disease (ELVIN OSUNA APRN) Physical Exam Vital Signs Vital Signs - First Documented 10/19/21 11:11 Temp 36.3 Pulse 68 Resp 16 B/P (MAP) 159/98 (118) Pulse Ox 98 O2 Delivery Room Air (GUY RAMIREZ MD) Vital Signs Capillary Refill : (ELVIN OSUNA APRN) Height, Weight, BMI Height: 6'2.00" Weight: 301lbs. 3.2oz. 136.727544zg; 44.00 BMI Method:Stated General Appearance: No Apparent Distress, WD/WN, Obese, Other (Alert and oriented very pleasant. Heart rate is 65 sinus. Blood pressure 159/98. His EKG shows sinus rhythm normal intervals, no ST segment changes.) Neck: Full Range of Motion, Normal Inspection Respiratory: Normal Breath Sounds, No Accessory Muscle Use, No Respiratory Dist ress Cardiovascular: Regular Rate, Rhythm, Normal Peripheral Pulses Gastrointestinal: Normal Bowel Sounds, Non Tender, Soft Extremity: Normal Capillary Refill, Normal Inspection Neurologic/Psychiatric: Alert, Oriented x3 Skin: Normal Color, Warm/Dry Other comments Chest wall is nontender to palpation. Flexion and extension of the left arm at the elbow is 5 out of 5 bilaterally. Jump Roll Operator are equal. (ELVIN OSUNA APRN) Progress/Results/Core Measures Results/Orders Lab Results Laboratory Tests Test 10/19/21 11:22 10/19/21 12:23 Range/Units White Blood Count 5.5 4.3-11.0 10^3/uL Red Blood Count 5.17 4.30-5.52 10^6/uL Hemoglobin 15.1 13.3-17.7 g/dL Hematocrit 45 40-54 % Mean Corpuscular Volume 87 80-99 fL Mean Corpuscular Hemoglobin 29 25-34 pg Mean Corpuscular Hemoglobin Concent 34 32-36 g/dL Red Cell Distribution Width 11.9 10.0-14.5 % Platelet Count 194 130-400 10^3/uL Mean Platelet Volume 9.5 9.0-12.2 fL Immature Granulocyte % (Auto) 1 % Neutrophils (%) (Auto) 58 42-75 % Lymphocytes (%) (Auto) 26 12-44 % Monocytes (%) (Auto) 11 0-12 % Eosinophils (%) (Auto) 4 0-10 % Basophils (%) (Auto) 1 0-10 % Neutrophils # (Auto) 3.2 1.8-7.8 10^3/uL Lymphocytes # (Auto) 1.4 1.0-4.0 10^3/uL Monocytes # (Auto) 0.6 0.0-1.0 10^3/uL Eosinophils # (Auto) 0.2 0.0-0.3 10^3/uL Basophils # (Auto) 0.0 0.0-0.1 10^3/uL Immature Granulocyte # (Auto) 0.0 0.0-0.1 10^3/uL Prothrombin Time 14.1 12.2-14.7 SEC INR Comment 1.1 0.8-1.4 Activated Partial Thromboplast Time 29 24-35 SEC Sodium Level 137 135-145 MMOL/L Potassium Level 4.3 3.6-5.0 MMOL/L Chloride Level 106 98-107 MMOL/L Carbon Dioxide Level 24 21-32 MMOL/L Anion Gap 7 5-14 MMOL/L Blood Urea Nitrogen 9 7-18 MG/DL Creatinine 0.73 0.60-1.30 MG/DL Estimat Glomerular Filtration Rate 120 BUN/Creatinine Ratio 12 Glucose Level 93 70-105 MG/DL Calcium Level 8.9 8.5-10.1 MG/DL Corrected Calcium 8.9 8.5-10.1 MG/DL Magnesium Level 2.2 1.6-2.4 MG/DL Total Bilirubin 0.6 0.1-1.0 MG/DL Aspartate Amino Transf (AST/SGOT) 25 5-34 U/L Alanine Aminotransferase (ALT/SGPT) 33 0-55 U/L Alkaline Phosphatase 62 40-136 U/L Myoglobin 46.0 10.0-92.0 NG/ML Troponin I < 0.028 <0.028 NG/ML B-Type Natriuretic Peptide 19.2 <100.0 PG/ML Total Protein 7.0 6.4-8.2 GM/DL Albumin 4.0 3.2-4.5 GM/DL Lipase 22 8-78 U/L Serum Alcohol 11 H <10 MG/DL Urine Color YELLOW Urine Clarity SL CLOUDY Urine pH 6.0 5-9 Urine Specific [place] >=1.030 1.016-1.022 Urine Protein NEGATIVE NEGATIVE Urine Glucose (UA) NEGATIVE NEGATIVE Urine Ketones NEGATIVE NEGATIVE Urine Nitrite NEGATIVE NEGATIVE Urine Bilirubin 1+ H NEGATIVE Urine Urobilinogen 0.2 < = 1.0 MG/DL Urine Leukocyte Esterase NEGATIVE NEGATIVE Urine RBC (Auto) NEGATIVE NEGATIVE Urine RBC NONE /HPF Urine WBC NONE /HPF Urine Squamous Epithelial Cells RARE /HPF Urine Crystals NONE /LPF Urine Bacteria NEGATIVE /HPF Urine Casts NONE /LPF Urine Mucus SMALL H /LPF Urine Culture Indicated NO Urine Opiates Screen NEGATIVE NEGATIVE Urine Oxycodone Screen NEGATIVE NEGATIVE Urine Methadone Screen NEGATIVE NEGATIVE Urine Propoxyphene Screen NEGATIVE NEGATIVE Urine Barbiturates Screen NEGATIVE NEGATIVE Ur Tricyclic Antidepressants Screen NEGATIVE NEGATIVE Urine Phencyclidine Screen NEGATIVE NEGATIVE Urine Amphetamines Screen NEGATIVE NEGATIVE Urine Methamphetamines Screen NEGATIVE NEGATIVE Urine Benzodiazepines Screen NEGATIVE NEGATIVE Urine Cocaine Screen NEGATIVE NEGATIVE Urine Cannabinoids Screen POSITIVE H NEGATIVE (GUY RAMIREZ MD) Medications Given in ED Current Medications Medications Dose Ordered Sig/Errol Route Start Time Stop Time Status Last Admin Dose Admin Al Hydrox/Mg Hydrox/Simethicone 30 ml ONCE ONCE PO 10/19/21 11:30 10/19/21 11:31 DC 10/19/21 11:26 30 ML Aspirin 324 mg ONCE ONCE PO 10/19/21 11:15 10/19/21 11:16 DC 10/19/21 11:25 324 MG Lidocaine HCl 15 ml ONCE ONCE PO 10/19/21 11:30 10/19/21 11:31 DC 10/19/21 11:26 15 ML (GUY RAMIREZ MD) Vital Signs/I&O 10/19/21 10/19/21 11:11 12:48 Temp 36.3 Pulse 68 63 Resp 16 16 B/P (MAP) 159/98 (118) 133/80 Pulse Ox 98 98 O2 Delivery Room Air Room Air (GUY RAMIREZ MD) Blood Pressure Mean: 118 Departure Communication (Admissions) 1230-his chest pressure is much better after GI cocktail. I will put him on a proton pump inhibitor. We will have him follow-up with cardiology and primary care. Discussed with him the need to discuss getting an MRI of the cervical spine to evaluate for cervical radiculopathy as a cause for his left arm symptoms. NAME: GHULAM SORIANO [facility] REC#: [id number] PT STATUS: REG ER : 1985 PHYSICIAN: ELVIN OSUNA COOLER MAN ADMIT DATE: 10/19/21/ER Draft Date of Exam:10/19/21 CHEST 1 VIEW, AP/PA ONLY Portable erect AP chest at 11:23. Indication: Chest pain The heart size is within normal limits although heart does seem somewhat more prominent than noted on the prior exam of 11/12/2019. The lungs remain generally clear. There is no sign of failure, pneumonia or pleural effusion. The mediastinum is not widened. The osseous structures are intact. Impression: There is no evidence for an acute cardiopulmonary abnormality. Dictated on workstation # [id number] Dict: 10/19/21 1141 Trans: 10/19/21 1144 CV [id number] Interpreted by: ELI DE LA CRUZ MD Electronically signed by: (ELVIN OSUNA APRN) Impression Primary Impression: Chest pain Disposition: HOME, SELF-CARE Condition: Stable Departure-Patient Inst. Decision time for Depature: 12:31 (ELVIN OSUNA APRN) Referrals: HELEN RAINEY MD FACP [facility] RUDY MEJIA MD NO,LOCAL PHYSICIAN (PCP) Primary Care Physician LOBITO PATEL JR, MD Patient Instructions: Chest Pain, Adult ED Add. Discharge Instructions: 1. 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 Return to ER for any concerns or worsening. Follow-up with your primary care provider or those through onsite health care at your job to discuss getting an MRI of your cervical spine to evaluate for potential disc bulge as a cause of your left arm and chest discomfort. All discharge instructions reviewed with patient and/or family. Voiced understanding. Scripts Pantoprazole Sodium (Protonix) 40 Mg Tablet. 40 MG PO DAILY, #30 TAB Prov: ELVIN OSUNA APRN 10/19/21 ATTENDING PHYSICIAN NOTE: I was physically present as attending physician in the emergency department during the care of this patient, but I was not directly involved in the decision making or delivery of care for this patient. (GUY RAMIREZ MD) ELVIN OSUNA APRN Oct 19, 2021 11:26 GUY RAMIREZ MD Oct 19, 2021 19:23
[2021-10-19 11:27] LABS: BASOPHILS % (AUTO) 1 % (0-10); EOSINOPHILS # (AUTO) 0.2 10^3/uL (0.0-0.3); EOSINOPHILS % (AUTO) 4 % (0-10); HEMATOCRIT 45 % (40-54); HEMOGLOBIN 15.1 g/dL (13.3-17.7); LYMPHOCYTES # (AUTO) 1.4 10^3/uL (1.0-4.0); LYMPHOCYTES % (AUTO) 26 % (12-44); MEAN CORPUSCULAR HEMOGLOBIN 29 pg (25-34); MEAN CORPUSCULAR HGB CONC 34 g/dL (32-36); MEAN CORPUSCULAR VOLUME 87 fL (80-99); MEAN PLATELET VOLUME 9.5 fL (9.0-12.2); MONOCYTES # (AUTO) 0.6 10^3/uL (0.0-1.0); MONOCYTES % (AUTO) 11 % (0-12); NEUTROPHILS # (AUTO) 3.2 10^3/uL (1.8-7.8); NEUTROPHILS % (AUTO) 58 % (42-75); PLATELET COUNT 194 10^3/uL (130-400); WHITE BLOOD COUNT 5.5 10^3/uL (4.3-11.0)
[2021-10-19] MEDS ORDERED: ANTACID SUSP 30 ML UDC (MYLANTA) PO ONE (11:30)
[2021-10-19] MEDS ORDERED: LIDOCAINE 2% VISCOUS 15 ML UDC PO ONE (11:30)
[2021-10-19 11:41] LABS: INR 1.1 (0.8-1.4); PROTHROMBIN TIME PATIENT 14.1 SEC (12.2-14.7)
--- NOTE | 2021-10-19 11:45 | Diagnostic Imaging Report ---
Portable erect AP chest at 11:23. Indication: Chest pain The heart size is within normal limits although heart does seem somewhat more prominent than noted on the prior exam of 11/12/2019. The lungs remain generally clear. There is no sign of failure, pneumonia or pleural effusion. The mediastinum is not widened. The osseous structures are intact. Impression: There is no evidence for an acute cardiopulmonary abnormality. Dictated by: Dictated on workstation # [id number]
[2021-10-19 11:48] LABS: BILIRUBIN,TOTAL 0.6 MG/DL (0.1-1.0); CALCIUM 8.9 MG/DL (8.5-10.1); CREATININE SERUM 0.73 MG/DL (0.60-1.30); MAGNESIUM 2.2 MG/DL (1.6-2.4); POTASSIUM 4.3 MMOL/L (3.6-5.0)
[2021-10-19 12:28] LABS: CLARITY,URINE SL CLOUDY; COLOR,URINE YELLOW; GLUCOSE, URINE (UA) NEGATIVE (NEGATIVE); KETONES,URINE NEGATIVE (NEGATIVE); LEUKOCYTE ESTERASE ,URINE NEGATIVE (NEGATIVE); NITRITE,URINE NEGATIVE (NEGATIVE); PROTEIN,URINE NEGATIVE (NEGATIVE)
[2021-10-19] MEDS ORDERED: PANT40TA2 PO (12:33)
[2021-10-19 12:43] LABS: AMPHETAMINE SCREEN, URINE NEGATIVE (NEGATIVE); BACTERIA,URINE NEGATIVE /HPF; BARBITURATE SCREEN URINE NEGATIVE (NEGATIVE); BENZODIAZEPINES SCREEN URINE NEGATIVE (NEGATIVE); CANNABINOID SCREEN, URINE POSITIVE (NEGATIVE); COCAINE SCREEN URINE NEGATIVE (NEGATIVE); METHADONE STAT NEGATIVE (NEGATIVE); METHAMPHETAMINE SCREEN URINE S NEGATIVE (NEGATIVE); OPIATE SCREEN URINE NEGATIVE (NEGATIVE); OXYCODONE STAT NEGATIVE (NEGATIVE); PROPOXYPHENE STAT NEGATIVE (NEGATIVE); SQUAMOUS EPITHELIAL CELL,UR RARE /HPF; TRICYCLIC ANTIDEPRESSANTS SCRE NEGATIVE (NEGATIVE)
[2021-10-19 12:48] VITALS: BP 133/80
[2021-10-19 12:48] LABS: BILIRUBIN,URINE 1+ (NEGATIVE)
== END 2021-10-19 12:48 | disposition home or self-care (01) ==
LOC: EDUNIT# 11:11 → ER 11:12
DX: R07.9 Chest pain, unspecified (principal); E66.9 Obesity, unspecified; Z68.41 Body mass index [BMI] 40.0-44.9, adult
CPT/HCPCS: 71045; 80053; 80306; 81000; 83690; 83735; 83874; 83880; 84484; 85025; 85610; 85730; 93005; 93041; 99284; G0480; 36415; 80320

== ENCOUNTER → 2022-12-04 | Outpatient (CLI) | payer OTHER ==
[~2022-12-04] MED LIST changes: +PANT40TA2 PO
--- NOTE | 2022-12-04 17:23 | Diagnostic Imaging Report ---
INDICATION: Cough and congestion, shortness of breath. TECHNIQUE: Two view chest 5:29 PM CORRELATION STUDY: None FINDINGS: The heart size, mediastinal configuration and pulmonary vasculature are within normal limits. The lungs are clear with no consolidating infiltrate. There is no significant pleural effusion or pneumothorax. Slight accentuated thoracic kyphosis with mild advanced degenerative disc disease. IMPRESSION: 1. Negative for acute abnormality of the chest. Dictated by: Dictated on workstation # [id number]
== END ==
LOC: RAD 17:14
PROVIDERS: ATTEND Registered Nurse Critical Care Medicine
DX: J18.8 Other pneumonia, unspecified organism (principal); J01.80 Other acute sinusitis; K60.0 Acute anal fissure; N45.3 Epididymo-orchitis; K64.0 First degree hemorrhoids; F41.1 Generalized anxiety disorder; M77.11 Lateral epicondylitis, right elbow; F33.1 Major depressive disorder, recurrent, moderate; E78.49 Other hyperlipidemia; M25.521 Pain in right elbow
CPT/HCPCS: 71046